=== PATIENT | female | born 1980 | race Caucasian/White ===

== ENCOUNTER 2021-05-05 14:11 | Outpatient (CLI) | payer OTHER | END 2021-05-05 14:12 | disposition home or self-care (01) | LOC: BICMAMMO 14:11 | PROVIDERS: ATTEND Internal Medicine | DX: Z12.31 Encounter for screening mammogram for malignant neoplasm of breast (principal); Z85.3 Personal history of malignant neoplasm of breast | CPT/HCPCS: 77063; 77067 ==

== ENCOUNTER 2022-05-21 11:23 | Outpatient (CLI) | payer BC | END 2022-05-21 11:24 | disposition home or self-care (01) | LOC: BICMAMMO 11:23 | PROVIDERS: ATTEND Internal Medicine | DX: Z12.31 Encounter for screening mammogram for malignant neoplasm of breast (principal); Z85.3 Personal history of malignant neoplasm of breast | CPT/HCPCS: 77063; 77067 ==

== ENCOUNTER 2023-09-14 12:40 | Outpatient (CLI) | payer BC | END 2023-09-14 12:41 | disposition home or self-care (01) | LOC: BICMAMMO 12:40 | PROVIDERS: ATTEND Internal Medicine | DX: Z12.31 Encounter for screening mammogram for malignant neoplasm of breast (principal) | CPT/HCPCS: 77063; 77067 ==